=== PATIENT | female | born 1955 | race Caucasian/White ===

== ENCOUNTER 2020-11-18 10:02 | Day surgery (SDC) | payer BC ==
--- NOTE | 2020-11-18 09:23 | PCM.PREANE ---
Preanesthetic Assessment - Procedure Proposed Procedure: Colonoscopy - Anesthesia/Transfusion/Family Hx Anesthesia History: Prior Anesthesia Without Reaction Family History of Anesthesia Reaction: No Transfusion History: No Prior Transfusion(s) Type of Transfusion Reactions: Reports: Transfusion Related Acute Lung Injury - Review of Systems General: No Symptoms Pulmonary: No Symptoms Cardiovascular: No Symptoms (HTN, HLD) Gastrointestinal: No Symptoms (GERD, well controlled) Neurological: No Symptoms Other: Reports: None - Physical Assessment NPO Status Date: 11/16/20 NPO Status Time: 19:00 Height: 5 ft 5 in Weight: 81.647 kg ASA Class: 2 Mental Status: Alert & Oriented x3 Dentition: Reports: Normal Dentition Thyro-Mental Finger Breadths: 3 Mouth Opening Finger Breadths: 3 ROM/Head Extension: Full Lungs: Clear to Auscultation, Normal Respiratory Effort Cardiovascular: Regular Rate, Regular Rhythm - Allergies Allergies/Adverse Reactions: Allergies Allergy/AdvReac Type Severity Reaction Status Date / Time codeine Allergy Cannot Verified 11/15/20 09:18 Remember diphenhydramine Allergy Fatigue Verified 11/15/20 09:18 [From Benadryl] morphine Allergy "bowels Verified 11/15/20 09:18 flipped" - Anesthesia Plan Beta Elvin: Propranolol Med Last Dose Date: 11/18/20 Med Last Dose Time: 08:00 - Acknowledgements Anesthesia Type Planned: General Anesthesia Pt an Appropriate Candidate for the Planned Anesthesia: Yes Alternatives and Risks of Anesthesia Discussed w Pt/Guardian: Yes Pt/Guardian Understands and Agrees with Anesthesia Plan: Yes PreAnesthesia Questionnaire Other HEENT History: reading glasses, dental implants Cardiovascular History: Reports: Heart Murmur, High Cholesterol, Hypertension, Other (See Below) Other Cardiovascular History: congenital long QT syndrome Respiratory History: Reports: TB Other Respiratory History: exposed to TB "years ago", have taken medication Gastrointestinal History: Reports: Colon Polyp, Diverticulosis, Irritable Bowel Syndrome Genitourinary History: Reports: 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: Musculoskeletal History: Reports: Arthritis Neurological History: Reports: Vertigo, Other (See Below) Other Neuro History: restless leg syndrome, benign paroxysmal positional vertigo Psychiatric History: Reports: Anxiety, Depression Endocrine/Metabolic History: Reports: None Hematologic History: Reports: Anemia Immunologic History: Reports: None Oncologic (Cancer) History: Reports: None Dermatologic History: Reports: None - Past Surgical History Head Surgeries/Procedures: Reports: None HEENT Surgical History: Reports: Myringotomy w Tube(s) Cardiovascular Surgical History: Reports: None Respiratory Surgical History: Reports: None GI Surgical History: Reports: Appendectomy, Cholecystectomy, Colonoscopy Female Surgical History: Reports: Breast Biopsy, Hysterectomy, Tubal Ligation Endocrine Surgical History: Reports: None Neurological Surgical History: Reports: None Musculoskeletal Surgical History: Reports: None Oncologic Surgical History: Reports: None Dermatological Surgical History: Reports: Skin Biopsy - SUBSTANCE USE Tobacco Use Status *Q: Never Tobacco User Recreational Drug Use History: No - HOME MEDS Home Medications: Home Meds Acetaminophen [Tylenol Extra Strength] 2 tab PO ASDIRECTED PRN 11/15/20 [History] Cholecalciferol (Vitamin D3) [Vitamin D3] 1,000 units PO DAILY 11/15/20 [History] Cyanocobalamin (Vitamin B-12) [Vitamin B12] 2,500 mcg PO DAILY 11/15/20 [History] Ezetimibe 10 mg PO DAILY 11/15/20 [History] Lactobacillus Rhamnosus GG [Culturelle] 1 tab PO DAILY 11/15/20 [History] Loperamide HCl [Imodium A-D] 2 mg PO ASDIRECTED PRN 11/15/20 [History] Losartan/Hydrochlorothiazide [Losartan-HCTZ 100-12.5 MG] 1 tab PO DAILY 11/15/20 [History] Lysine [l-Lysine] 500 mg PO ASDIRECTED PRN 11/15/20 [History] PARoxetine [Paxil] 10 mg PO DAILY 11/15/20 [History] Potassium Chloride 10 meq PO DAILY 11/15/20 [History] amLODIPine [Norvasc] 5 mg PO BEDTIME 11/15/20 [History] diazePAM [Valium] 5 mg PO ASDIRECTED PRN 11/15/20 [History] nadoloL [Naldol] 40 mg PO BEDTIME 11/15/20 [History] - CURRENT (IN HOUSE) MEDS Current Meds: Current Medications Lactated Ringer's (Ringers, Lactated) 1,000 mls @ 125 mls/hr IV ASDIRECTED MAUREEN Discontinued Medications Lidocaine HCl (Lidocaine 1% 5 Ml Sdv) Confirm Administered Dose 5 ml .ROUTE .[facility] ONE Stop: 11/18/20 07:30 Propofol (Propofol 200 Mg/20 Ml Sdv) Confirm Administered Dose [address] .[facility] ONE Stop: 11/18/20 07:30
[~2020-11-18 10:02] MED LIST: Lactated Ringers 1,000 ML IV SCH; Propofol 200 MG/20 ML SDV ONE
--- NOTE | 2020-11-18 10:58 | PCM.PREANE ---
Preanesthetic Assessment - Procedure Proposed Procedure: Colonoscopy - Anesthesia/Transfusion/Family Hx Anesthesia History: Prior Anesthesia Without Reaction Family History of Anesthesia Reaction: No Transfusion History: No Prior Transfusion(s) - Review of Systems General: No Symptoms Pulmonary: No Symptoms Cardiovascular: No Symptoms (h/o long QT, controlled on nadolol, HTN, HLD) Gastrointestinal: No Symptoms Neurological: No Symptoms Other: Reports: None, Liver Problems (Fatty Liver) - Physical Assessment NPO Status Date: 11/17/20 NPO Status Time: 07:00 Height: 5 ft 5 in Weight: 81.647 kg ASA Class: 2 Mental Status: Alert & Oriented x3 Dentition: Reports: Missing Tooth/Teeth (Being prepped for implants) Thyro-Mental Finger Breadths: 3 Mouth Opening Finger Breadths: 3 ROM/Head Extension: Full Lungs: Clear to Auscultation, Normal Respiratory Effort Cardiovascular: Regular Rate, Regular Rhythm - Allergies Allergies/Adverse Reactions: Allergies Allergy/AdvReac Type Severity Reaction Status Date / Time codeine Allergy Cannot Verified 11/15/20 09:18 Remember diphenhydramine Allergy Fatigue Verified 11/15/20 09:18 [From Benadryl] morphine Allergy "bowels Verified 11/15/20 09:18 flipped" - Anesthesia Plan Beta Elvin: Nadolol Med Last Dose Date: 11/17/20 Med Last Dose Time: 20:00 - Acknowledgements Anesthesia Type Planned: General Anesthesia Pt an Appropriate Candidate for the Planned Anesthesia: Yes Alternatives and Risks of Anesthesia Discussed w Pt/Guardian: Yes Pt/Guardian Understands and Agrees with Anesthesia Plan: Yes PreAnesthesia Questionnaire Other HEENT History: reading glasses, dental implants Cardiovascular History: Reports: Heart Murmur, High Cholesterol, Hypertension, Other (See Below) Other Cardiovascular History: congenital long QT syndrome Respiratory History: Reports: TB Other Respiratory History: exposed to TB "years ago", have taken medication Gastrointestinal History: Reports: Colon Polyp, Diverticulosis, Irritable Bowel Syndrome Genitourinary History: Reports: None 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: Musculoskeletal History: Reports: Arthritis Neurological History: Reports: Vertigo, Other (See Below) Other Neuro History: restless leg syndrome, benign paroxysmal positional vertigo Psychiatric History: Reports: Anxiety, Depression Endocrine/Metabolic History: Reports: None Hematologic History: Reports: Anemia Immunologic History: Reports: None Oncologic (Cancer) History: Reports: None Dermatologic History: Reports: None - Past Surgical History Head Surgeries/Procedures: Reports: None HEENT Surgical History: Reports: Myringotomy w Tube(s) Cardiovascular Surgical History: Reports: None Respiratory Surgical History: Reports: None GI Surgical History: Reports: Appendectomy, Cholecystectomy, Colonoscopy Female Surgical History: Reports: Breast Biopsy, Hysterectomy, Tubal Ligation Endocrine Surgical History: Reports: None Neurological Surgical History: Reports: None Musculoskeletal Surgical History: Reports: None Oncologic Surgical History: Reports: None Dermatological Surgical History: Reports: Skin Biopsy - SUBSTANCE USE Tobacco Use Status *Q: Never Tobacco User Recreational Drug Use History: No - HOME MEDS Home Medications: Home Meds Acetaminophen [Tylenol Extra Strength] 2 tab PO ASDIRECTED PRN 11/15/20 [History] Cholecalciferol (Vitamin D3) [Vitamin D3] 1,000 units PO DAILY 11/15/20 [History] Cyanocobalamin (Vitamin B-12) [Vitamin B12] 2,500 mcg PO DAILY 11/15/20 [History] Ezetimibe 10 mg PO DAILY 11/15/20 [History] Lactobacillus Rhamnosus GG [Culturelle] 1 tab PO DAILY 11/15/20 [History] Loperamide HCl [Imodium A-D] 2 mg PO ASDIRECTED PRN 11/15/20 [History] Losartan/Hydrochlorothiazide [Losartan-HCTZ 100-12.5 MG] 1 tab PO DAILY 11/15/20 [History] Lysine [l-Lysine] 500 mg PO ASDIRECTED PRN 11/15/20 [History] PARoxetine [Paxil] 10 mg PO DAILY 11/15/20 [History] Potassium Chloride 10 meq PO DAILY 11/15/20 [History] amLODIPine [Norvasc] 5 mg PO BEDTIME 11/15/20 [History] diazePAM [Valium] 5 mg PO ASDIRECTED PRN 11/15/20 [History] nadoloL [Naldol] 40 mg PO BEDTIME 11/15/20 [History] - CURRENT (IN HOUSE) MEDS Current Meds: Current Medications Lactated Ringer's (Ringers, Lactated) 1,000 mls @ 125 mls/hr IV ASDIRECTED MAUREEN Discontinued Medications Lidocaine HCl (Lidocaine 1% 5 Ml Sdv) Confirm Administered Dose 5 ml .ROUTE .[facility] ONE Stop: 11/18/20 07:30 Propofol (Propofol 200 Mg/20 Ml Sdv) Confirm Administered Dose 400 mg .ROUTE .[facility] ONE Stop: 11/18/20 07:30
--- NOTE | 2020-11-18 12:44 | PCM.OPNOTE ---
- General Post-Op/Procedure Note Date of Surgery/Procedure: 11/18/20 Operative Procedure(s): Colonoscopy with biopsy large sigmoid polyp Pre Op Diagnosis: Desire for colorectal cancer screening Post-Op Diagnosis: Large sigmoid polyp, with a thick stalk. Sigmoid diverticul osis. Anesthesia Technique: MAC (ASA II) Primary Surgeon: Fabrizio Marti Condition: Good Free Text/Narrative:: DICTATION 266352 CPT CODE [id number]
[2020-11-18] MEDS ORDERED: Lactated Ringers 1,000 ML IV SCH (12:45)
--- NOTE | 2020-11-18 12:49 | PCM.POSTAN ---
POST ANESTHESIA ASSESSMENT - MENTAL STATUS Mental Status: Alert - VITAL SIGNS Vital Signs: Last Vital Signs Temp 97.2 F 11/18/20 10:20 Pulse 54 L 11/18/20 10:20 Resp 16 11/18/20 10:20 BP 167/70 H 11/18/20 10:20 Pulse Ox 97 11/18/20 10:20 - RESPIRATORY Respiratory Status: Respiratory Rate WNL, Airway Patent, O2 Saturation Stable - CARDIOVASCULAR CV Status: Pulse Rate WNL - GASTROINTESTINAL GI Status: No Symptoms - POST OP HYDRATION Hydration Status: Adequate & Stable - OBSERVATIONS Free Text/Narrative:: Pt doing well post-op. VSS. No apparenet anesthetic complications. Dr. Nando Mehta
--- NOTE | 2020-11-18 12:52 | PCM48HPAN ---
Post Anesthesia Note - EVALUATION WITHIN 48HRS OF ANESTHETIC Vital Signs in Normal Range: Yes Patient Participated in Evaluation: Yes Respiratory Function Stable: Yes Airway Patent: Yes Cardiovascular Function Stable: Yes Hydration Status Stable: Yes Pain Control Satisfactory: Yes Nausea and Vomiting Control Satisfactory: Yes Mental Status Recovered: Yes Vital Signs: Last Vital Signs Temp 97.2 F 11/18/20 10:20 Pulse 57 L 11/18/20 12:50 Resp 13 11/18/20 12:50 BP 142/79 H 11/18/20 12:50 Pulse Ox 96 11/18/20 12:50
[2020-11-18 13:14] VITALS: BP 158/70; PULSE 52
--- NOTE | 2020-11-18 13:46 | OR ---
SURGEON: Fabrizio Marti M.D. DATE OF PROCEDURE: 11/18/2020 OPERATION PERFORMED: Colonoscopy with biopsy of sigmoid polypoid mass. PRIMARY SURGEON: Fabrizio Marti M.D. ANESTHESIA: MAC. ASA CLASSIFICATION: II. PREOPERATIVE DIAGNOSIS: Desire for colorectal cancer screening. POSTOPERATIVE DIAGNOSES: 1. Large sigmoid polyp with a thick stalk. 2. Sigmoid diverticulosis. DESCRIPTION OF PROCEDURE: The patient was taken to the endoscopy room and positioned on the endoscopy table in the left lateral decubitus position. Time-out was called for appropriate identification of the patient and procedure. Monitored anesthesia care was provided. The colonoscope was inserted into the rectum and advanced proximally. Once we entered the sigmoid colon, we encountered diverticular changes but more importantly a very large polyp with what appeared to be a very thick stalk. I was able to maneuver the colonoscope above this without difficulty and advanced it all the way to the cecum. The cecum was identified by internal landmarks and external pressure. The colonoscope was retroflexed to visualize the ascending colon from below, then straightened, and slowly withdrawn. The cecum, ascending colon, hepatic flexure, transverse colon, splenic flexure, and descending colon showed no tumors, polyps, diverticula, or angiodysplastic changes. Sigmoid colon itself demonstrated moderate diverticular disease, although no stricture, spasm, or bleeding were encountered. The large polypoid mass was again encountered and is at approximately 35 cm from the anal orifice. Several biopsies of this area were obtained. This was examined very carefully, and I did not feel that this could safely be removed here. She will require colorectal consultation in [place]. The colonoscope was then withdrawn to the rectum and retroflexed to visualize the anal orifice from above. Again, no tumors or polyps were seen and there were no acute hemorrhoidal changes. The colonoscope was then straightened, the rectum aspirated, and the colonoscope removed. The patient tolerated the procedure well and was taken to recovery room in stable condition. SHADY / KEN /[id number]
== END 2020-11-18 13:50 | disposition home or self-care (01) ==
LOC: MW.SDS 10:02
PROVIDERS: ATTEND Surgery
DX: Z12.11 Encounter for screening for malignant neoplasm of colon (principal); D12.5 Benign neoplasm of sigmoid colon; K57.30 Diverticulosis of large intestine without perforation or abscess without bleeding; K21.9 Gastro-esophageal reflux disease without esophagitis; I10 Essential (primary) hypertension; F41.8 Other specified anxiety disorders; E78.00 Pure hypercholesterolemia, unspecified; E66.9 Obesity, unspecified; Z88.8 Allergy status to other drugs, medicaments and biological substances; Z88.5 Allergy status to narcotic agent; Z79.899 Other long term (current) drug therapy; Z90.49 Acquired absence of other specified parts of digestive tract; Z98.890 Other specified postprocedural states; Z68.29 Body mass index [BMI] 29.0-29.9, adult
CPT/HCPCS: 45380; J2704; J7120; 00812; 88305